=== PATIENT | male | born 1985 | race Caucasian/White ===

== ENCOUNTER 2024-01-27 15:57 | Emergency (ER) | payer BC ==
[~2024-01-27] VITALS: Ht 195.6 cm; Wt 140.6 kg
[2024-01-27 16:03] VITALS: BP_SYST 153; PULSE 96; RESP 17; TEMP 96.9; O2SAT 99
[2024-01-27] MEDS: KETOROLAC TROMETHAMINE 30 MG VIAL IM ONE (19:29)
[2024-01-27] MEDS ORDERED: DICL20GE TP (19:56)
[2024-01-27] MEDS ORDERED: DICL75TA5 PO (19:56)
[2024-01-27 20:20] VITALS: BP_SYST 145; PULSE 96; RESP 17; TEMP 96.9; O2SAT 99
== END 2024-01-27 20:20 | disposition home or self-care (01) ==
LOC: SED 15:57
DX: M10.9 Gout, unspecified (principal); R22.42 Localized swelling, mass and lump, left lower limb
CPT/HCPCS: 99285; 93971; 84550; 36415; 96372; J1885